=== PATIENT | female | born 1970 | race Caucasian/White ===

== ENCOUNTER → 2017-06-17 | Outpatient (CLI) | payer MEDICARE, OTHER ==
[~2017-06-17] MED LIST: ATROPINE 1 MG/10 ML DISP.SYRIN ONE; BUPIVACAINE MPF 0.5% 30 ML VIAL. ONE; EPINEPHrine 1 MG/10 ML DISP.SYRIN ONE; FLUMAZENIL 0.5 MG/5 ML VIAL. IV ONE; GLUCAGON,HUMAN RECOMBINANT 1 MG KIT. ONE; IV NORMAL SALINE 250ML 250 ML ONE; LIDOCAINE 1% PF 30 ML VIAL. ONE; MIDAZOLAM HCL 2 MG/2 ML VIAL. ONE; NALOXONE 0.4 MG/ML VIAL. ONE; diphenhydrAMINE 50 MG/ML VIAL ONE; fentaNYL PF 100 MCG/2 ML VIAL ONE; methylPREDNISolone ACETATE 40 MG/ML VIAL. ONE
== END | disposition home or self-care (01) ==
LOC: SURG 11:27
PROVIDERS: ATTEND Anesthesiology Pain Medicine
DX: M47.816 Spondylosis without myelopathy or radiculopathy, lumbar region (principal); M19.91 Primary osteoarthritis, unspecified site; I10 Essential (primary) hypertension; E07.9 Disorder of thyroid, unspecified; M19.90 Unspecified osteoarthritis, unspecified site; D64.9 Anemia, unspecified; Z85.850 Personal history of malignant neoplasm of thyroid; Z72.89 Other problems related to lifestyle
CPT/HCPCS: 64635; 64636; J1030; J2001; J2250; J3010; J3490; J7050; J0171; J0461; J1200; J1610; J2310